=== PATIENT | female | born 1985 | race Caucasian/White ===

== ENCOUNTER 2017-12-01 18:24 | Emergency (ER) | END 2017-12-01 21:44 | disposition home or self-care (01) ==

== ENCOUNTER 2019-02-04 08:48 | Emergency (ER) | payer MEDICAID, OTHER ==
[~2019-02-04] VITALS: Ht 160 cm; Wt 82.8 kg
[~2019-02-04 08:48] MED LIST: BACTDS PO; CEPH-443 PO; HYDR-4011 PO; IBUP-1542 PO; PREN-46 PO
[2019-02-04 08:51] VITALS: BP 125/57; PULSE 102; RESP 18; Ht 160 cm; Wt 82.8 kg
[2019-02-04] MEDS ORDERED: HYDR-843 PO (09:49)
[2019-02-04] MEDS ORDERED: EPIN0.3P4 INJ (09:49)
[2019-02-04] MEDS ORDERED: OXYC-279 PO (09:49)
[2019-02-04] MEDS ORDERED: ONDA4TAB8 PO (09:49)
[2019-02-04] MEDS ORDERED: DEXAMETHASONE 10 MG/ML 1 ML INJ IM STA (09:52)
[2019-02-04] MEDS ORDERED: DEXAMETHASONE 4 MG/ML 1 ML INJ IM ONE (10:00)
[2019-02-04] MEDS ORDERED: DIPHENHYDRAMINE 25 MG CAP PO ONE (10:00)
--- NOTE | 2019-02-04 13:54 | ERD ---
ER Documentation Chief Complaint Chief Complaint rash and itching after eating sushi last night HPI 33-year-old woman complaining of itchy red rash over most of her body and upper lip swelling beginning last night after eating sushi, patient is status post gastric surgery, abdominoplasty, and breast reduction surgery about a week ago. She states she ran out of her opioid analgesics as well. She denies chest pain or shortness of breath, no vomiting or diarrhea, no difficulty swallowing or speaking. ROS All systems reviewed and are negative except as per history of present illness. Medications Home Meds Active Scripts Hydroxyzine Hcl* (Hydroxyzine Hcl*) 25 Mg Tablet, 25 MG PO TID PRN for ITCHING, #30 TAB Prov:EVERETTE ZIMMERMAN MD 02/04/19 Epinephrine (Epipen 2-Julian) 0.3 Mg/0.3 Ml Pen.injctr, 1 EA INJ ONCE PRN for ALLERGIC REACTION, #1 EA Prov:EVERETTE ZIMMERMAN MD 02/04/19 Ondansetron Hcl* (Zofran*) 4 Mg Tablet, 4 MG PO Q6H for NAUSEA AND/OR VOMITING, #30 TAB Prov:EVERETTE ZIMMERMAN MD 02/04/19 Oxycodone HCl/Acetaminophen (Percocet 5-325 mg Tablet) 1 Each Tablet, 1 EACH PO TID PRN for PAIN LEVEL 6-10, #15 TAB Prov:EVERETTE ZIMMERMAN MD 02/04/19 Hydrocodone/Acetaminophen ([place] 5-325 Tablet) 1 Each Tablet, 1 TAB PO Q6H PRN for PAIN, #10 TAB Prov:LOCO DALLAS MD 12/01/17 Ibuprofen* (Ibuprofen*) 600 Mg Tablet, 600 MG PO Q6H PRN for PAIN, #30 TAB Prov:ANITA MALDONADO PA-C 09/03/16 Hydrocodone/Acetaminophen ([place] 5-325 Tablet) 1 Each Tablet, 2 TAB PO Q6H PRN for PAIN, #30 TAB Prov:ANITA MALDONADO PA-C 09/03/16 Sulfamethoxazole-Trimethoprim* (Bactrim* DS) 800-160 Mg Tab, 1 TAB PO BID for 7 Days, TAB Prov:ANITA MALDONADO PA-C 09/03/16 Cephalexin* (Keflex*) 500 Mg Capsule, 500 MG PO QID for 10 Days, CAP Prov:ANITA MALDONADO PA-C 09/03/16 Reported Medications Vit #108/Iron/Fa ( ONE TABLET) 1 Each Tablet, 1 EACH PO DAILY, #100 10/14/13 Allergies Allergies: Coded Allergies: No Known Allergy (Unverified , 12/01/17) PMhx/Soc History of Surgery: Yes (GASTRIC SLEEVE,stomach reduction,breast reduction) Anesthesia Reaction: No Hx Neurological Disorder: No Hx Respiratory Disorders: No Hx Cardiac Disorders: No Hx Psychiatric Problems: No Hx Miscellaneous Medical Probl: No Hx Alcohol Use: No Hx Substance Use: No Hx Tobacco Use: No Smoking Status: Never smoker FmHx Family History: No diabetes Physical Exam Vitals Vital Signs Date Temp Pulse Resp B/P (MAP) Pulse Ox O2 O2 Flow FiO2 Time Delivery Rate 02/04/19 98.1 102 18 125/57 100 08:51 (79) Physical Exam GENERAL: Well-developed, well-nourished, well-hydrated, in no apparent distress, looks nontoxic in appearance HEENT: Moist mucous membranes, pink conjunctiva, no cervical spine tenderness or step-off deformities, no goiter, no jaundice or icterus, extraocular movements intact without pain. CARDIAC: Regular rate and rhythm, no murmurs rubs or gallops LUNGS: Clear bilaterally no wheezing crackles or stridor ABDOMEN: Soft nontender, no guarding, no rigidity, no rebound, no psoas sign no obturator sign. Normoactive bowel sounds SKIN: Diffuse urticarial lesions throughout the upper and lower extremities and torso and mild upper lip edema. Surgical sites over the breasts and abdomen are clean and dry bogdan are in place there is no wound dehiscence, no purulent discharge. Patient has no submandibular induration EXTREMITIES: No clubbing cyanosis or edema, calves are bilaterally symmetrical, no Homans sign, no popliteal cord sign. Distal pulses equal and bilateral PSYCH: Normal affect without agitation or irritability Results 24 hrs Current Medications Medications Dose Sig/Yeimi Start Time Status Last (Trade) Ordered Route PRN Stop Time Admin Dose Reason Admin 10 mg ONCE ONCE 02/04/19 DC Dexamethasone IM 10:00 (Decadron) 02/04/19 10:00 25 mg ONCE ONCE 02/04/19 DC 02/04/19 Diphenhydrami PO 10:00 10:00 ne HCl 02/04/19 10:01 (Benadryl) 10 mg ONCE STAT 02/04/19 DC 02/04/19 Dexamethasone IM 09:52 10:00 (Decadron) 02/04/19 09:55 Procedures/MDM Administer dexamethasone 10 mg IM x1 and Benadryl 25 mg p.o. x1 I agreed to refill the patient's opioid analgesics and also recommended EpiPen which I prescribed. Patient feels much better at this time, and vital signs are normal, symptoms have improved. I did give strict instructions to return to the ED if symptoms continue or worsen, patient will otherwise follow-up with primary care physician. Patient understood instructions and agreed to plan. Disclaimer: Inadvertent spelling and grammatical errors are likely due to EHR/dictation software use and do not reflect on the overall quality of patient care. Also, please note that the electronic time recorded on this note does not necessarily reflect the actual time of the patient encounter. Departure Diagnosis: Primary Impression: Allergic reaction Encounter type: initial encounter Qualified Codes: T78.40XA - Allergy, unspecified, initial encounter Additional Impressions: Food allergy Postoperative pain Condition: Good Patient Instructions: Allergic Reaction, Other (General), Post Op Wound Check, Pain EVERETTE ZIMMERMAN MD February 04, 2019 13:54
== END 2019-02-04 09:49 | disposition home or self-care (01) ==
LOC: FTE 08:48
DX: L50.0 Allergic urticaria (principal); G89.18 Other acute postprocedural pain; T78.1XXA Other adverse food reactions, not elsewhere classified, initial encounter
CPT/HCPCS: 96372; J1100; Z7502; Z7610

== ENCOUNTER 2019-04-04 10:14 | Inpatient (IN) | payer OTHER ==
[~2019-04-04] VITALS: Ht 160 cm; Wt 79.3 kg
[~2019-04-04 10:14] MED LIST changes: +EPIN0.3P4 INJ; +FAMO-96 PO; +HYDR-843 PO; +ONDA4TAB8 PO; +OXYC-279 PO
[2019-04-04] MEDS ORDERED: ONDANSETRON 4 MG INJ IV STA (10:34)
[2019-04-04] MEDS ORDERED: SOD CHLORIDE 0.9% 1,000 ML IV STA (10:34)
[2019-04-04] MEDS ORDERED: morphine 4 MG/ML VIAL IV STA (10:34)
[2019-04-04] MEDS ORDERED: ACETAMINOPHEN 325 MG TAB PO PRN (11:00)
[2019-04-04] MEDS ORDERED: ONDANSETRON 4 MG INJ IV PRN ×3 (11:00→21:30)
[2019-04-04 12:07] VITALS: BP 101/67; PULSE 68; RESP 18
--- NOTE | 2019-04-04 12:20 | ERD ---
ER Documentation Chief Complaint Chief Complaint RIGHT QUADRANT PAIN - POSSIBLE GALLSTONES HPI Patient is a 33-year-old female with no medical problems who presents with abdominal pain. She has right upper quadrant abdominal pain. She has been trying famotidine and [place] but is failed outpatient treatment. She was seen in the emergency department 2 days ago for the same and had a work-up including laboratory studies, ultrasound, and CT scan. She was discharged and recommended outpatient follow-up. She saw the [facility] today who is her primary doctor who sent her to the emergency department for evaluation and admission. She had subjective fever starting yesterday and said that she has been vomiting yellow bile. Upon review of old medical records this is the patient's second visit to the ER since 2015. ROS All systems reviewed and are negative except as per history of present illness. Medications Home Meds Active Scripts Famotidine* (Pepcid*) 20 Mg Tablet, 20 MG PO BID for 4 Days, #30 TAB Prov:JACQUE NG PA-C 04/02/19 Hydrocodone/Acetaminophen ([place] 5-325 Tablet) 1 Each Tablet, 1 TAB PO Q6H PRN for PAIN, #7 TAB Prov:JACQUE NG PA-C 04/02/19 Hydroxyzine Hcl* (Hydroxyzine Hcl*) 25 Mg Tablet, 25 MG PO TID PRN for ITCHING, #30 TAB Prov:EVERETTE ZIMMERMAN MD 02/04/19 Epinephrine (Epipen 2-Julian) 0.3 Mg/0.3 Ml Pen.injctr, 1 EA INJ ONCE PRN for ALLERGIC REACTION, #1 EA Prov:EVERETTE ZIMMERMAN MD 02/04/19 Ondansetron Hcl* (Zofran*) 4 Mg Tablet, 4 MG PO Q6H for NAUSEA AND/OR VOMITING, #30 TAB Prov:EVERETTE ZIMMERMAN MD 02/04/19 Oxycodone HCl/Acetaminophen (Percocet 5-325 mg Tablet) 1 Each Tablet, 1 EACH PO TID PRN for PAIN LEVEL 6-10, #15 TAB Prov:EVERETTE ZIMMERMAN MD 02/04/19 Hydrocodone/Acetaminophen ([place] 5-325 Tablet) 1 Each Tablet, 1 TAB PO Q6H PRN for PAIN, #10 TAB Prov:LOCO DALLAS MD 12/01/17 Ibuprofen* (Ibuprofen*) 600 Mg Tablet, 600 MG PO Q6H PRN for PAIN, #30 TAB Prov:ANITA MALDONADO PA-C 09/03/16 Hydrocodone/Acetaminophen ([place] 5-325 Tablet) 1 Each Tablet, 2 TAB PO Q6H PRN for PAIN, #30 TAB Prov:ANITA MALDONADO PA-C 09/03/16 Sulfamethoxazole-Trimethoprim* (Bactrim* DS) 800-160 Mg Tab, 1 TAB PO BID for 7 Days, TAB Prov:ANITA MALDONADO PA-C 09/03/16 Cephalexin* (Keflex*) 500 Mg Capsule, 500 MG PO QID for 10 Days, CAP Prov:ANITA MALDONADO PA-C 09/03/16 Reported Medications Vit #108/Iron/Fa ( ONE TABLET) 1 Each Tablet, 1 EACH PO DAILY, #100 10/14/13 Allergies Allergies: Coded Allergies: No Known Allergy (Unverified , 12/01/17) PMhx/Soc History of Surgery: Yes (GASTRIC SLEEVE,stomach reduction,breast reduction) Anesthesia Reaction: No Hx Neurological Disorder: No Hx Respiratory Disorders: No Hx Cardiac Disorders: No Hx Psychiatric Problems: No Hx Miscellaneous Medical Probl: No Hx Alcohol Use: No Hx Substance Use: No Hx Tobacco Use: No Smoking Status: Never smoker FmHx Family History: No diabetes Physical Exam Vitals Vital Signs Date Temp Pulse Resp B/P (MAP) Pulse Ox O2 O2 Flow FiO2 Time Delivery Rate 04/04/19 98.7 107 26 120/52 99 10:15 (74) Physical Exam Const: No acute distress Head: Atraumatic Eyes: Normal Conjunctiva ENT: Normal External Ears, Nose and Mouth. Neck: Full range of motion. No meningismus. Resp: Clear to auscultation bilaterally Cardio: Regular rate and rhythm, no murmurs Abd: Right upper quadrant tenderness to palpation with guarding Skin: No petechiae or rashes Back: No midline or flank tenderness Ext: No cyanosis, or edema Neur: Awake and alert Psych: Normal Mood and Affect Result Diagram: 04/04/19 1052 04/04/19 1052 Results 24 hrs Laboratory Tests Test 04/04/19 10:34 POC Beta HCG, Qualitative NEGATIVE Current Medications Medications Dose Sig/Yeimi Start Time Status Last (Trade) Ordered Route PRN Stop Time Admin Dose Reason Admin Sodium 1,000 ml @ Q1H STAT 04/04/19 DC 04/04/19 Chloride 1,000 mls/hr IV 10:34 10:59 04/04/19 11:33 Morphine 4 mg ONCE STAT 04/04/19 DC 04/04/19 Sulfate IV 10:34 10:59 (morphine) 04/04/19 10:35 Ondansetron 4 mg ONCE STAT 04/04/19 DC 04/04/19 HCl (Zofran IV 10:34 10:58 Inj) 04/04/19 10:35 Procedures/MDM Ultrasound and CT scan performed 2 days ago which I reviewed. Chest x-ray read by radiology. EKG pending. Patient is a 33-year-old female who presents with acute cholecystitis. The patient has significant right upper quadrant abdominal pain with palpation. She is reporting subjective fever and vomiting bile. She has failed outpatient treatment at this time and I believe she has acute cholecystitis. I spoke with Dr. Bolanos via [facility] for consultation. I spoke with Dr. Garduno from the panel team for admission to a medical surgical bed. The patient would likely benefit from cholecystectomy. Today the white count is elevated at 13.2. LFTs and lipase are normal. She will be admitted to a medical surgical inpatient bed. Departure Diagnosis: Primary Impression: Cholecystitis Condition: LILA Franklin MD Apr 04, 2019 12:20
[2019-04-04 12:31] VITALS: Ht 160 cm; Wt 79.3 kg
[2019-04-04] MEDS: morphine 2 MG INJ IV PRN ×2 (13:46→18:16)
[2019-04-04 14:00] VITALS: BP 102/57; PULSE 86; RESP 20
[2019-04-04] MEDS ORDERED: ALBUTEROL/IPRATROPIUM (NEB) 3 ML AMP HHN PRN (14:30)
[2019-04-04] MEDS ORDERED: LORAZEPAM 2 MG INJ IV PRN (14:30)
[2019-04-04] MEDS ORDERED: NACL 0.9% 3 ML SYG IV SCH (14:30)
[2019-04-04] MEDS ORDERED: NITROGLYCERIN (SL) 0.4 MG TAB SL PRN (14:30)
[2019-04-04] MEDS ORDERED: DOCUSATE SODIUM 100 MG CAP PO PRN (14:30)
--- NOTE | 2019-04-04 14:51 | HP ---
DATE OF ADMISSION: 04/04/2019 CHIEF COMPLAINT: Abdominal pain. HISTORY OF PRESENT ILLNESS: A 33-year-old female with past medical history of tummy tuck and breast reduction surgeries who comes in with abdominal pain. She has had some subjective fevers at home and some bilious vomiting symptoms in the last 48 hours, the patient's pain initially began about 2 to 3 days ago when she came to the ER 2 days ago and had imaging studies performed at that time including CT abdomen and pelvis, and it showed findings of possible cholecystitis with mild biliary ductal enl argement. There was also a gallbladder ultrasound showed moderately distended gallbladder with multi ple large calcified stones. At that time, patient was told to watch her symptoms and she was dischar ged with pain medicines and an H2 antonio and told to come back to the ER in 48 hours since that time , her pain symptoms have not improved and again she has had no vomiting symptoms and some subjective fevers. She went to the health clinic earlier today and saw her primary doctor who told her to come to the ER for reevaluation. When she came in today, she had a chest x-ray performed that shows no ev idence of any acute cardiopulmonary disease, but given the imaging studies that were performed 48 dru rs ago a call was made out to the surgeon to come see the patient, which is still pending at this antonio e. The patient also has elevated white blood cell count of 13.3. Denies any chest pain or shortness of breath, no upper or lower GI bleeding, no diarrhea or constipation, no chills. PAST MEDICAL HISTORY: As stated above. ALLERGIES: NO KNOWN DRUG ALLERGIES. MEDICATIONS AT HOME: 1. Famotidine 20 mg b.i.d. 2. [place] 5/325 q.6h. p.r.n. 3. Hydroxyzine 25 mg t.i.d. p.r.n. 4. Zofran 4 mg p.o. q.6h. p.r.n. PAST SURGICAL HISTORY: Again, she had a tummy tuck surgery in the past and breast reduction surgery in the past. SOCIAL HISTORY: Former alcohol use. Denies any IV drug abuse or smoking history. FAMILY HISTORY: Noncontributory. PHYSICAL EXAMINATION: VITAL SIGNS: T-max 98.7, pulse 107, respirations 26, blood pressure 120/52, satting at 99% on room a ir. GENERAL: The patient is lying in bed in mild to moderate distress, complaining of some pain symptoms , but alert. HEENT: Pupils are equal, round, react to light. Extraocular muscles intact. NECK: Supple, no thyromegaly. LUNGS: Clear to auscultation bilaterally. CARDIOVASCULAR: S1, S2 heard. No rubs or gallops. ABDOMEN: Tenderness to palpation right upper quadrant area with some guarding otherwise normal bowel sounds. No rebound. MUSCULOSKELETAL: No lower extremity edema bilaterally. NEUROLOGIC: No focal deficits. LABORATORIES: WBC 13.3. The rest of the CBC is normal. The comprehensive metabolic panel is normal except the ALT is a little high at 89. The bilirubins are normal. We mentioned the prior CT abdome n and pelvis findings and gallbladder ultrasound findings. ASSESSMENT AND PLAN: A 33-year-old female coming in with signs of right upper quadrant abdominal denita n and vomiting symptoms and subjective fevers with signs of acute cholecystitis. 1. Abdominal pain, likely secondary to acute cholecystitis. We will admit the patient, keep her n.p .o. Give her IV fluids, check TSH, A1c, lipid panel. We will follow up with the recommendation of [facility] surgery consult team. The patient may benefit from laparoscopic cholecystectomy attempt, but again we will discuss with surgery team first to see if this is the appropriate treatment versus medical m anagement. Continue IV fluids. 2. Gastrointestinal prophylaxis, H2 antonio. 3. Deep venous thrombosis prophylaxis, heparin subcutaneously. Dictated By: ETIENNE PONCE Conf#: [id number] DID#: [id number]
[2019-04-04] MEDS: FAMOTIDINE 20 MG TAB PO SCH ×2 (15:00→21:00)
[2019-04-04] MEDS: SOD CHLORIDE 0.9% 1,000 ML IV SCH (15:28)
[2019-04-04] MEDS: ACETAMINOPHEN 325 MG TAB PO PRN ×2 (17:15→17:23)
--- NOTE | 2019-04-04 20:32 | CONS ---
Assessment/Plan Assessment/Plan Assessment/Plan (Daily) cholelithiasis , abdominal pain , gallstones consistent with acute cholecystitis discussed with patient options of trying medical management for pain , delayed surgery vs urgent . As her symptoms and signs are now consistent with acute cholecystitis Risks benefits and alternatives discussed . patient wishes to proceed and OR has been called Consultation Date/Type/Reason Admit Date/Time Apr 04, 2019 at 10:44 Date of Consultation: Apr 04, 2019 Type of Consult General Surgery Reason for Consultation abdominal pain , cholelithiasis Date/Time of Note DATE: 04/04/19 TIME: 20:14 Hx of Present Illness Patient presente to ER with second atttack of upper abdominal pain . Seen in ER two days ago , CT and U/S showed gallstones . Now WBC 12k , LFTs normal , Patient had sleeve gastrectomy a few years ago . No other medical issues . Pain quite severe earlier today and last night after she stopped taking [place] Past Medical History Home Meds Active Scripts Famotidine* (Pepcid*) 20 Mg Tablet, 20 MG PO BID for 4 Days, #30 TAB Prov:JACQUE NG PA-C 04/02/19 Hydrocodone/Acetaminophen ([place] 5-325 Tablet) 1 Each Tablet, 1 TAB PO Q6H PRN for PAIN, #7 TAB Prov:JACQUE NG PA-C 04/02/19 Hydroxyzine Hcl* (Hydroxyzine Hcl*) 25 Mg Tablet, 25 MG PO TID PRN for ITCHING, #30 TAB Prov:EVERETTE ZIMMERMAN MD 02/04/19 Epinephrine (Epipen 2-Julian) 0.3 Mg/0.3 Ml Pen.injctr, 1 EA INJ ONCE PRN for ALLERGIC REACTION, #1 EA Prov:EVERETTE ZIMMERMAN MD 02/04/19 Ondansetron Hcl* (Zofran*) 4 Mg Tablet, 4 MG PO Q6H for NAUSEA AND/OR VOMITING, #30 TAB Prov:EVERETTE ZIMMERMAN MD 02/04/19 Oxycodone HCl/Acetaminophen (Percocet 5-325 mg Tablet) 1 Each Tablet, 1 EACH PO TID PRN for PAIN LEVEL 6-10, #15 TAB Prov:EVERETTE ZIMMERMAN MD 02/04/19 Hydrocodone/Acetaminophen ([place] 5-325 Tablet) 1 Each Tablet, 1 TAB PO Q6H PRN for PAIN, #10 TAB Prov:LOCO DALLAS MD 12/01/17 Ibuprofen* (Ibuprofen*) 600 Mg Tablet, 600 MG PO Q6H PRN for PAIN, #30 TAB Prov:ANITA MALDONADO PA-C 09/03/16 Hydrocodone/Acetaminophen ([place] 5-325 Tablet) 1 Each Tablet, 2 TAB PO Q6H PRN for PAIN, #30 TAB Prov:ANITA MALDONADO PA-C 09/03/16 Sulfamethoxazole-Trimethoprim* (Bactrim* DS) 800-160 Mg Tab, 1 TAB PO BID for 7 Days, TAB Prov:ANITA MALDONADO PA-C 09/03/16 Cephalexin* (Keflex*) 500 Mg Capsule, 500 MG PO QID for 10 Days, CAP Prov:ANITA MALDONADO PA-C 09/03/16 Reported Medications Vit #108/Iron/Fa ( ONE TABLET) 1 Each Tablet, 1 EACH PO DAILY, #100 10/14/13 Medications Current Medications Ondansetron HCl (Zofran Inj) 4 mg BRIDGE ORDER PRN IV NAUSEA/VOMITING; Start 04/04/19 at 11:00; Stop 04/05/19 at 10:59 Morphine Sulfate (morphine) 2 mg Q4H PRN IV SEVERE PAIN LEVEL 7-10 Last administered on 04/04/19at 18:16; Admin Dose 2 MG; Start 04/04/19 at 14:00 IV Flush (NS 3 ml) 3 ml PER PROTOCOL IV ; Start 04/04/19 at 14:30 Ondansetron HCl (Zofran Inj) 4 mg Q6H PRN IV NAUSEA/VOMITING; Start 04/04/19 at 14:30 Acetaminophen (Tylenol Tab) 650 mg Q6H PRN PO .PAIN 1-3 OR TEMP Last administered on 04/04/19at 17:23; Admin Dose 650 MG; Start 04/04/19 at 14:30 Acetaminophen/ Hydrocodone Bitart ([place] (5/325)) 1 tab Q6H PRN PO .MOD PAIN 4- 6; Start 04/04/19 at 14:30 Morphine Sulfate (morphine) 2 mg Q4H PRN IV .SEVERE PAIN 7-10; Start 04/04/19 at 14:30 Docusate Sodium (Colace) 100 mg Q12H PRN PO .CONSTIPATION; Start 04/04/19 at 14:30 Magnesium Hydroxide (Milk Of Mag) 30 ml DAILY PRN PO .CONSTIPATION; Start 04/04/19 at 14:30 Lorazepam (Ativan) 0.5 mg Q6H PRN IV ANXIETY Last administered on 04/04/19at 15:39; Admin Dose 0.5 MG; Start 04/04/19 at 14:30 Albuterol/ Ipratropium (Duoneb) 3 ml Q4H RESP THERAPY PRN HHN SHORTNESS OF BREATH; Start 04/04/19 at 14:30 Nitroglycerin (Nitroglycerin (Sl Tab) 0.4 Mg) 1 tab Q5M PRN SL ANGINA; Start 04/04/19 at 14:30 Sodium Chloride 1,000 ml @ 100 mls/hr Q10H IV Last administered on 04/04/19at 15:28; Admin Dose 100 MLS/HR; Start 04/04/19 at 14:30 Famotidine (Pepcid) 20 mg BID PO ; Start 04/04/19 at 15:00 Heparin Sodium (Porcine) (Heparin (5000 Units/1ml)) 5,000 unit BID SC ; Start 04/04/19 at 21:00 Allergies: Coded Allergies: No Known Allergy (Unverified , 12/01/17) Social History Smoking Status: Never smoker Exam/Review of Systems Exam Vitals Vital Signs Date Temp Pulse Resp B/P (MAP) Pulse Ox O2 O2 Flow FiO2 Time Delivery Rate 04/04/19 98.8 86 20 102/57 96 14:00 (72) 04/04/19 Room Air 12:07 Exam Awake and alert x 3 . Lungs clear Cor Reg Abd tender right upper quadrant Results Result Diagram: 04/04/19 1052 04/04/19 1052 Results 24hrs Laboratory Tests Test 04/04/19 10:34 04/04/19 10:45 04/04/19 10:52 POC Beta HCG, Qualitative NEGATIVE Free Thyroxine 1.00 White Blood Count 13.3 #H Red Blood Count 4.56 Hemoglobin 13.4 Hematocrit 40.6 Mean Corpuscular Volume 89.0 Mean Corpuscular Hemoglobin 29.4 Mean Corpuscular Hemoglobin Concent 33.0 Red Cell Distribution Width 12.5 Platelet Count 201 # Mean Platelet Volume 9.0 Immature Granulocytes % 0.600 H Neutrophils % 79.8 H Lymphocytes % 9.6 L Monocytes % 8.5 Eosinophils % 1.1 Basophils % 0.4 Nucleated Red Blood Cells % 0.0 Immature Granulocytes # 0.080 H Neutrophils # 10.6 H Lymphocytes # 1.3 Monocytes # 1.1 H Eosinophils # 0.2 Basophils # 0.1 Nucleated Red Blood Cells # 0.0 Prothrombin Time 15.3 H Prothrombin Time Ratio 1.2 INR International Normalized Ratio 1.20 Activated Partial Thromboplast Time 35.8 H Urine Color YELLOW Urine Clarity CLEAR Urine pH 6.0 Urine Specific Ashley 1.017 Urine Ketones NEGATIVE Urine Nitrite NEGATIVE Urine Bilirubin NEGATIVE Urine Urobilinogen NEGATIVE Urine Leukocyte Esterase NEGATIVE Urine Hemoglobin NEGATIVE Urine Glucose NEGATIVE Urine Total Protein NEGATIVE Sodium Level 140 Potassium Level 4.2 Chloride Level 105 Carbon Dioxide Level 27 Anion Gap 8 Blood Urea Nitrogen 11 Creatinine 0.60 Est Glomerular Filtrat Rate mL/min > 60 Glucose Level 91 Calcium Level 8.8 Total Bilirubin 0.4 Direct Bilirubin 0.00 Indirect Bilirubin 0.4 Aspartate Amino Transf (AST/SGOT) 45 Alanine Aminotransferase (ALT/SGPT) 89 H Alkaline Phosphatase 88 Troponin I < 0.012 Total Protein 6.7 Albumin 3.4 Globulin 3.30 H Albumin/Globulin Ratio 1.03 Lipase 36 Medications Medication Current Medications Ondansetron HCl (Zofran Inj) 4 mg BRIDGE ORDER PRN IV NAUSEA/VOMITING; Start 04/04/19 at 11:00; Stop 04/05/19 at 10:59 Morphine Sulfate (morphine) 2 mg Q4H PRN IV SEVERE PAIN LEVEL 7-10 Last administered on 04/04/19at 18:16; Admin Dose 2 MG; Start 04/04/19 at 14:00 IV Flush (NS 3 ml) 3 ml PER PROTOCOL IV ; Start 04/04/19 at 14:30 Ondansetron HCl (Zofran Inj) 4 mg Q6H PRN IV NAUSEA/VOMITING; Start 04/04/19 at 14:30 Acetaminophen (Tylenol Tab) 650 mg Q6H PRN PO .PAIN 1-3 OR TEMP Last administered on 04/04/19at 17:23; Admin Dose 650 MG; Start 04/04/19 at 14:30 Acetaminophen/ Hydrocodone Bitart ([place] (5/325)) 1 tab Q6H PRN PO .MOD PAIN 4- 6; Start 04/04/19 at 14:30 Morphine Sulfate (morphine) 2 mg Q4H PRN IV .SEVERE PAIN 7-10; Start 04/04/19 at 14:30 Docusate Sodium (Colace) 100 mg Q12H PRN PO .CONSTIPATION; Start 04/04/19 at 14:30 Magnesium Hydroxide (Milk Of Mag) 30 ml DAILY PRN PO .CONSTIPATION; Start 04/04/19 at 14:30 Lorazepam (Ativan) 0.5 mg Q6H PRN IV ANXIETY Last administered on 04/04/19at 15:39; Admin Dose 0.5 MG; Start 04/04/19 at 14:30 Albuterol/ Ipratropium (Duoneb) 3 ml Q4H RESP THERAPY PRN HHN SHORTNESS OF BREATH; Start 04/04/19 at 14:30 Nitroglycerin (Nitroglycerin (Sl Tab) 0.4 Mg) 1 tab Q5M PRN SL ANGINA; Start 04/04/19 at 14:30 Sodium Chloride 1,000 ml @ 100 mls/hr Q10H IV Last administered on 04/04/19at 15:28; Admin Dose 100 MLS/HR; Start 04/04/19 at 14:30 Famotidine (Pepcid) 20 mg BID PO ; Start 04/04/19 at 15:00 Heparin Sodium (Porcine) (Heparin (5000 Units/1ml)) 5,000 unit BID SC ; Start 04/04/19 at 21:00 KIRSTEN PEÑA MD Apr 04, 2019 20:27
[2019-04-04] MEDS ORDERED: SEVOFLURANE 15 MIN ONE (21:00)
[2019-04-04] MEDS ORDERED: HEPARIN 5,000 UNIT/1 ML VIAL SC SCH (21:00)
[2019-04-04] MEDS ORDERED: EPHEDrine 25 MG/5 ML SYG ONE (21:00)
[2019-04-04 21:07] VITALS: BP 103/56; PULSE 88; RESP 20
--- NOTE | 2019-04-04 21:17 | PREAC ---
Date/Time of Note Date/Time of Note DATE: 04/04/19 TIME: 21:16 Anesthesia Eval and Record Evaluation Time Pre-Procedure Interview DATE: 04/04/19 TIME: 21:16 Age 33 Sex female NPO: 8 hrs Preoperative diagnosis acute cholecystitis Planned procedure laparoscopic cholecystectomy Past Medical History Past Medical History: Includes GI: Obesity Surgery & Anesthesia Issues No known issue Meds Anticoagulation: No Beta Karma within 24 hr: No Reason Beta Karma not given: Pt. not on B-Karma Active Scripts Famotidine* (Pepcid*) 20 Mg Tablet, 20 MG PO BID for 4 Days, #30 TAB Prov:JACQUE NG PA-C 04/02/19 Hydrocodone/Acetaminophen ([place] 5-325 Tablet) 1 Each Tablet, 1 TAB PO Q6H PRN for PAIN, #7 TAB Prov:JACQUE NG PA-C 04/02/19 Hydroxyzine Hcl* (Hydroxyzine Hcl*) 25 Mg Tablet, 25 MG PO TID PRN for ITCHING, #30 TAB Prov:EVERETTE ZIMMERMAN MD 02/04/19 Epinephrine (Epipen 2-Julian) 0.3 Mg/0.3 Ml Pen.injctr, 1 EA INJ ONCE PRN for ALLERGIC REACTION, #1 EA Prov:EVERETTE ZIMMERMAN MD 02/04/19 Ondansetron Hcl* (Zofran*) 4 Mg Tablet, 4 MG PO Q6H for NAUSEA AND/OR VOMITING, #30 TAB Prov:EVERETTE ZIMMERMAN MD 02/04/19 Oxycodone HCl/Acetaminophen (Percocet 5-325 mg Tablet) 1 Each Tablet, 1 EACH PO TID PRN for PAIN LEVEL 6-10, #15 TAB Prov:EVERETTE ZIMMERMAN MD 02/04/19 Hydrocodone/Acetaminophen ([place] 5-325 Tablet) 1 Each Tablet, 1 TAB PO Q6H PRN for PAIN, #10 TAB Prov:LOCO DALLAS MD 12/01/17 Ibuprofen* (Ibuprofen*) 600 Mg Tablet, 600 MG PO Q6H PRN for PAIN, #30 TAB Prov:ANITA MALDONADO PA-C 09/03/16 Hydrocodone/Acetaminophen ([place] 5-325 Tablet) 1 Each Tablet, 2 TAB PO Q6H PRN for PAIN, #30 TAB Prov:MONIQUERodolfoANITA PA-C 09/03/16 Sulfamethoxazole-Trimethoprim* (Bactrim* DS) 800-160 Mg Tab, 1 TAB PO BID for 7 Days, TAB Prov:ANITA MALDONADO PA-C 09/03/16 Cephalexin* (Keflex*) 500 Mg Capsule, 500 MG PO QID for 10 Days, CAP Prov:ANITA MALDONADO PA-C 09/03/16 Reported Medications Vit #108/Iron/Fa ( ONE TABLET) 1 Each Tablet, 1 EACH PO DAILY, #100 10/14/13 Current Medications Ondansetron HCl (Zofran Inj) 4 mg BRIDGE ORDER PRN IV NAUSEA/VOMITING; Start 04/04/19 at 11:00; Stop 04/05/19 at 10:59 Morphine Sulfate (morphine) 2 mg Q4H PRN IV SEVERE PAIN LEVEL 7-10 Last administered on 04/04/19at 18:16; Admin Dose 2 MG; Start 04/04/19 at 14:00 IV Flush (NS 3 ml) 3 ml PER PROTOCOL IV ; Start 04/04/19 at 14:30 Ondansetron HCl (Zofran Inj) 4 mg Q6H PRN IV NAUSEA/VOMITING; Start 04/04/19 at 14:30 Acetaminophen (Tylenol Tab) 650 mg Q6H PRN PO .PAIN 1-3 OR TEMP Last administered on 04/04/19at 17:23; Admin Dose 650 MG; Start 04/04/19 at 14:30 Acetaminophen/ Hydrocodone Bitart ([place] (5/325)) 1 tab Q6H PRN PO .MOD PAIN 4- 6; Start 04/04/19 at 14:30 Morphine Sulfate (morphine) 2 mg Q4H PRN IV .SEVERE PAIN 7-10; Start 04/04/19 at 14:30 Docusate Sodium (Colace) 100 mg Q12H PRN PO .CONSTIPATION; Start 04/04/19 at 14:30 Magnesium Hydroxide (Milk Of Mag) 30 ml DAILY PRN PO .CONSTIPATION; Start 04/04/19 at 14:30 Lorazepam (Ativan) 0.5 mg Q6H PRN IV ANXIETY Last administered on 04/04/19at 15 :39; Admin Dose 0.5 MG; Start 04/04/19 at 14:30 Albuterol/ Ipratropium (Duoneb) 3 ml Q4H RESP THERAPY PRN HHN SHORTNESS OF BREATH; Start 04/04/19 at 14:30 Nitroglycerin (Nitroglycerin (Sl Tab) 0.4 Mg) 1 tab Q5M PRN SL ANGINA; Start 04/04/19 at 14:30 Sodium Chloride 1,000 ml @ 100 mls/hr Q10H IV Last administered on 04/04/19at 15:28; Admin Dose 100 MLS/HR; Start 04/04/19 at 14:30 Famotidine (Pepcid) 20 mg BID PO ; Start 04/04/19 at 15:00 Heparin Sodium (Porcine) (Heparin (5000 Units/1ml)) 5,000 unit BID SC ; Start 04/04/19 at 21:00 Meds reviewed: Yes Allergies Coded Allergies: No Known Allergy (Unverified , 12/01/17) Allergies Reviewed: Yes Labs/Studies Labs Reviewed: Reviewed by anesthesiologist Result Diagram: 04/04/19 1052 04/04/19 1052 Laboratory Tests 04/04/19 10:52 test: Negative Pre-procedure Exam Last vitals Vital Signs Date Temp Pulse Resp B/P (MAP) Pulse Ox O2 O2 Flow FiO2 Time Delivery Rate 04/04/19 98.2 88 20 103/56 100 21:07 (72) 04/04/19 Room Air 12:07 Airway: Adequate mouth opening, Adequate thyromental dist Mallampati: Mallampati II Teeth: Normal Lung: Normal Heart: Normal ASA Physical Status ASA physical status: 2 Emergency: None Planned Anesthetic General/MAC: ETT Nerve block: TAP (bilateral) Planned Pain Management Single shot nerve block, Parenteral pain med Pre-operative Attestations Prior to commencing anesthesia and surgery, the patient was re-evaluated, there was verification of: *The patient's identity *The results of appropriate recent lab work and preoperative vital signs *The above evaluation not changing prior to induction *Anesthetic plan, risk benefits, alternative and complications discussed with patient/family; questions answered; patient/family understands, accepts and wishes to proceed. ASHLEY JOHNSON MD Apr 04, 2019 21:17
[2019-04-04] MEDS ORDERED: DIPHENHYDRAMINE 50 MG INJ IV PRN (21:30)
[2019-04-04] MEDS ORDERED: PROCHLORPERAZINE 10 MG INJ IV PRN (21:30)
[2019-04-04] MEDS ORDERED: FENTAnyl 50 MCG/ML VIAL IV PRN ×3 (21:30)
[2019-04-04] MEDS ORDERED: MEPERIDINE 25 MG INJ IV PRN (21:30)
[2019-04-04] MEDS ORDERED: HYDROmorphONE 1 MG/5 ML IV SYRINGE IV PRN ×3 (21:30)
[2019-04-04] MEDS ORDERED: ROCURONIUM 50 MG INJ ONE (21:31)
[2019-04-04] MEDS ORDERED: SUCCINYLCHOLINE CHLORIDE 100 MG/5 ML SYG IV ONE (21:31)
[2019-04-04] MEDS ORDERED: FENTAnyl 50 MCG/ML VIAL ONE (21:31)
[2019-04-04] MEDS ORDERED: MIDAZOLAM 1 MG/ML 2 ML INJ ONE (21:31)
[2019-04-04] MEDS ORDERED: PROPOFOL 20 ML ONE ×2 (21:31→22:40)
[2019-04-04] MEDS ORDERED: LIDOCAINE 2% (SDV) 5 ML INJ ONE (21:31)
[2019-04-04] MEDS ORDERED: ROPIVACAINE 0.5 % 30 ML VIAL ONE (21:32)
[2019-04-04] MEDS ORDERED: HYDROmorphONE 2 MG/ML SYG ONE (21:34)
[2019-04-04] MEDS ORDERED: PHENYLephrine (100 MCG/ML) 10ML SYG ONE (22:12)
[2019-04-04] MEDS ORDERED: DEXAMETHASONE 4 MG/ML 5 ML INJ ONE (22:41)
[2019-04-04] MEDS ORDERED: ONDANSETRON 4 MG INJ ONE (22:41)
[2019-04-04] MEDS ORDERED: CEFAZOLIN 1 GM INJ ONE (22:43)
[2019-04-05] VITALS (17 sets, daily range): BP systolic 98–122; BP diastolic 56–67; PULSE 72–98; RESP 16–23
[2019-04-05] MEDS ORDERED: GLYCOPYRROLATE 0.4 MG INJ ONE (00:15)
[2019-04-05] MEDS ORDERED: NEOSTIGMINE 3 MG/3 ML SYRINGE ONE (00:15)
[2019-04-05] MEDS: SOD CHLORIDE 0.9% 1,000 ML IV SCH (00:30)
--- NOTE | 2019-04-05 00:30 | OPR ---
Date/Time of Note Date/Time of Note DATE: 04/05/19 TIME: 00:26 Operative Report Free Text/Dictation Operative report Procedure Date: Apr 05, 2019 Preoperative Diagnosis Acute cholecystitis, cholelithiasis Postoperative Diagnosis Severe acute cholecystitis and cholelithiasis Operation/Procedure Performed Laparoscopic cholecystectomy Surgeon Kirsten Bolanos MD see signature line Federal Law Clerk None Anesthesia Type: general Anesthesiologist: ASHLEY JOHNSON MD Estimated Blood Loss: 50 - 100 ml's Transfusion none Specimen Gallbladder and content Grafts/Implants none Tubes/Drains None Complications none Pt Condition Post Procedure: stable Disposition: PACU Indications Patient presented to the emergency room secondary to tach severe epigastric pain right upper quadrant pain in the past 3 days patient marked tenderness in the epigastrium right upper quadrant ultrasound revealed gallstones and thickened gallbladder wall when she was advised for admission and urgent laparoscopic cholecystectomy. Patient had undergone sleeve gastrectomy several years ago and had abdominoplasty since that time. Risk benefits alternatives were discussed in detail including possible conversion open procedure possibility of post cholecystectomy syndrome and expectations for postoperative care patient agreed to proceed consent was signed and she was brought urgently to the operating room Procedure Description Patient brought to the operating placed in supine position general she is administered with intubation patient was prepped draped in sterile fashion orogastric tube was inserted by anesthesia. Timeout was completed. TAP block was done by anesthesia . A Veress needle was inserted at [place] , insufflation delivered to maintain pneumo at 15 mm Hg . A supraumbilical stab incision was made a a 5 mm trocar inserted . it did not enter into the abdomen so an additional trocar was inserted i the left mid abdomen n easily . The Veress needle was removed and it was noted the initial trocar was in the falciform. The Veress was removed and additional trocars were then inserted , a 11 mm in the epigastrium , 2 5 mm trocars in the right abdomen . The gallbladder was inflamed and quite distended and covered with omentum and a phrygian cap . It was then decompressed by making a cholecystostomy with a cautery and aspirating the white bile . The gallbladder was then [id number] over the right lobe of the liver . The neck was carefully dissected at the level of the node and care was taken to bluntly separate the right hepatic artery off the gallbladder and skeletonize the cystic artery . it was then double clipped proximally , single clipped distal and divided . similar fashion the duct was dissected and skeletonized . The gallbladder was then taken bluntly and with cautery off the liver bed . There was a significant amount of inflammation , edema noted . The gallbladder was taken off completely . There was moderate oozing due to the capsule being avulsed , and pressure with a gauze and FloSeal were used affectively to control the gallbladder was then placed in an applied medical specimen bag and delivered up into the 11 mm site . the fascia had to be extended to deliver the specimen n all trocars were removed after confirming that hemostasis was controlled The incisions were closed with 4-0 Monocryl for skin . the 11mm site was closed with 0 Ethibond , 3-0 Vicryl and 4-0 Monocryl then skin glue was applied the patient was extubate din the operating room and brought to recovery in stable condition KIRSTEN BOLANOS MD Apr 05, 2019 00:30
--- NOTE | 2019-04-05 00:33 | PAC ---
Date/Time of Note Date/Time of Note DATE: 04/05/19 TIME: 00:32 Post-Anesthesia Notes Post-Anesthesia Note Last documented vital signs Vital Signs Date Temp Pulse Resp B/P (MAP) Pulse Ox O2 O2 Flow FiO2 Time Delivery Rate 04/04/19 98.2 88 20 103/56 100 21:07 (72) 04/04/19 Room Air 12:07 Activity: WNL Respiratory function: WNL Cardiovascular function: WNL Mental status: Baseline Pain reasonably controlled: Yes Hydration appropriate: Yes Nausea/Vomiting absent: Yes Comments BP: 114/67 HR: 99 RR: 15 T: 98.6 SaO2: 100% ASHLEY JOHNSON MD Apr 05, 2019 00:33
[2019-04-05] MEDS ORDERED: KETOROLAC 30 MG INJ IV ONE (01:00)
[2019-04-05] MEDS ORDERED: ACETAMINOPHEN 325 MG TAB PO PRN (01:00)
[2019-04-05] MEDS ORDERED: ONDANSETRON 4 MG INJ IV PRN (01:00)
[2019-04-05] MEDS ORDERED: IBUPROFEN 600 MG TAB PO PRN (01:00)
[2019-04-05] MEDS: D5W-0.45 NACL + KCL 20 MEQ 1,000 ML IV SCH ×3 (01:51→20:37)
[2019-04-05] MEDS: PIPER-TAZO 3.375 GM IV (PMX) 100 ML IVPB SCH ×3 (05:39→18:56)
[2019-04-05] MEDS: morphine 2 MG INJ IV PRN ×3 (05:40→17:26)
[2019-04-05] MEDS: HYDROCODONE/APAP (5/325) TAB PO PRN ×3 (08:29→19:48)
[2019-04-05] MEDS: ENOXAPARIN 40 MG/0.4 ML SYG SC SCH (09:14)
[2019-04-05] MEDS: FAMOTIDINE 20 MG INJ IV SCH ×2 (09:20→20:48)
--- NOTE | 2019-04-05 14:00 | PN ---
Date/Time of Note Date/Time of Note DATE: 04/05/19 TIME: 13:56 Assessment/Plan VTE Prophylaxis Risk score (from [facility] [place]0 risk: 3 SCD applied (from [facility] [place]): No SCD contraindicated: other Pharmacological prophylaxis: heparin Lines/Catheters IV Catheter Type (from [place]): Saline Lock Urinary Cath still in place: No Assessment/Plan Hospital Course S: Patient had laproscopic cholecystomy earlier this morning. Tolerating diet but still complaining of some right-sided abdominal pain. O: VS- see below PHYSICAL EXAMINATION: GENERAL: lying in bed HEENT: PERRL, EOMI NECK: Supple, no thyromegaly. LUNGS: Clear to auscultation bilaterally. CARDIOVASCULAR: S1, S2 heard. No rubs or gallops. ABDOMEN: Less tenderness to palpation right upper quadrant area with some guardi ng otherwise normal bowel sounds. No rebound. MUSCULOSKELETAL: No lower extremity edema bilaterally. NEUROLOGIC: No focal deficits. Date/Time of Note Date/Time of Note DATE: 04/05/19 TIME: 00:26 Operative Report Free Text/Dictation Operative report Procedure Date: Apr 05, 2019 Preoperative Diagnosis Acute cholecystitis, cholelithiasis Postoperative Diagnosis Severe acute cholecystitis and cholelithiasis Operation/Procedure Performed Laparoscopic cholecystectomy ASSESSMENT AND PLAN: 33-year-old female coming in with signs of right upper quadrant abdominal pain and vomiting symptoms and subjective fevers with signs of acute cholecystitis. 1. Abdominal pain- likely secondary to acute cholecystitis. Again status post laparoscopic cholecystectomy postop day #1. - Continue IV fluids, pain control medications - follow up postoperative recommendations of the surgery consult team. - Continue IV fluids. 2. Gastrointestinal prophylaxis- H2 antonio. 3. Deep venous thrombosis prophylaxis- heparin subcutaneously. Result Diagram: 04/05/19 0514 04/05/19 0514 Results 24hrs Laboratory Tests Test 04/05/19 05:14 White Blood Count 8.8 # Red Blood Count 4.30 Hemoglobin 12.5 Hematocrit 38.8 Mean Corpuscular Volume 90.2 Mean Corpuscular Hemoglobin 29.1 Mean Corpuscular Hemoglobin Concent 32.2 Red Cell Distribution Width 12.7 Platelet Count 196 Mean Platelet Volume 9.2 Immature Granulocytes % 0.500 H Neutrophils % 90.3 H Lymphocytes % 6.6 L Monocytes % 2.5 Eosinophils % 0.0 Basophils % 0.1 Nucleated Red Blood Cells % 0.0 Immature Granulocytes # 0.040 H Neutrophils # 8.0 H Lymphocytes # 0.6 L Monocytes # 0.2 L Eosinophils # 0.0 Basophils # 0.0 Nucleated Red Blood Cells # 0.0 Sodium Level 140 Potassium Level 4.8 Chloride Level 106 Carbon Dioxide Level 27 Anion Gap 7 Blood Urea Nitrogen 6 L Creatinine 0.47 Est Glomerular Filtrat Rate mL/min > 60 Glucose Level 158 Hemoglobin A1c 4.8 Calcium Level 8.4 Triglycerides Level 52 Cholesterol Level 115 LDL Cholesterol, Calculated 73 HDL Cholesterol 32 L Cholesterol/HDL Ratio 3.5 Thyroid Stimulating Hormone (TSH) 0.653 Exam/Review of Systems Exam Vitals Vital Signs Date Temp Pulse Resp B/P (MAP) Pulse Ox O2 O2 Flow FiO2 Time Delivery Rate 04/05/19 98.6 78 20 105/58 96 08:00 (74) 04/05/19 Room Air 03:30 Intake and Output 04/04/19 04/04/19 04/05/19 1515:00 23:00 07:00 IntakeIntake Total 1000 ml 550 ml 820 ml BalanceBalance 1000 ml 550 ml 820 ml Results Results 24hrs Laboratory Tests Test 04/05/19 05:14 White Blood Count 8.8 # Red Blood Count 4.30 Hemoglobin 12.5 Hematocrit 38.8 Mean Corpuscular Volume 90.2 Mean Corpuscular Hemoglobin 29.1 Mean Corpuscular Hemoglobin Concent 32.2 Red Cell Distribution Width 12.7 Platelet Count 196 Mean Platelet Volume 9.2 Immature Granulocytes % 0.500 H Neutrophils % 90.3 H Lymphocytes % 6.6 L Monocytes % 2.5 Eosinophils % 0.0 Basophils % 0.1 Nucleated Red Blood Cells % 0.0 Immature Granulocytes # 0.040 H Neutrophils # 8.0 H Lymphocytes # 0.6 L Monocytes # 0.2 L Eosinophils # 0.0 Basophils # 0.0 Nucleated Red Blood Cells # 0.0 Sodium Level 140 Potassium Level 4.8 Chloride Level 106 Carbon Dioxide Level 27 Anion Gap 7 Blood Urea Nitrogen 6 L Creatinine 0.47 Est Glomerular Filtrat Rate mL/min > 60 Glucose Level 158 Hemoglobin A1c 4.8 Calcium Level 8.4 Triglycerides Level 52 Cholesterol Level 115 LDL Cholesterol, Calculated 73 HDL Cholesterol 32 L Cholesterol/HDL Ratio 3.5 Thyroid Stimulating Hormone (TSH) 0.653 Medications Medication Current Medications IV Flush (NS 3 ml) 3 ml PER PROTOCOL IV ; Start 7/18/19 at 14:30 Acetaminophen/ Hydrocodone Bitart ([place] (5/325)) 1 tab Q6H PRN PO .MOD PAIN 4- 6 Last administered on 04/05/19 08:29; Admin Dose 1 TAB; Start 04/04/19 at 14:30 Morphine Sulfate (morphine) 2 mg Q4H PRN IV .SEVERE PAIN 7-10 Last administered on 04/05/19 10:07; Admin Dose 2 MG; Start 04/04/19 at 14:30 Docusate Sodium (Colace) 100 mg Q12H PRN PO .CONSTIPATION; Start 04/04/19 at 14:30 Magnesium Hydroxide (Milk Of Mag) 30 ml DAILY PRN PO .CONSTIPATION; Start 04/04/19 at 14:30 Lorazepam (Ativan) 0.5 mg Q6H PRN IV ANXIETY Last administered on 04/04/19at 15:39; Admin Dose 0.5 MG; Start 04/04/19 at 14:30 Albuterol/ Ipratropium (Duoneb) 3 ml Q4H RESP THERAPY PRN HHN SHORTNESS OF BREATH; Start 04/04/19 at 14:30 Nitroglycerin (Nitroglycerin (Sl Tab) 0.4 Mg) 1 tab Q5M PRN SL ANGINA; Start 04/04/19 at 14:30 Piperacillin Sod/ Tazobactam Sod 100 ml @ 200 mls/hr Q6 IVPB Last administered on 04/05/19at 12:29; Admin Dose 200 MLS/HR; Start 04/05/19 at 06:00 Ondansetron HCl (Zofran Inj) 4 mg Q6H PRN IV NAUSEA AND/OR VOMITING; Start 04/05/19 at 01:00 Acetaminophen (Tylenol Tab) 650 mg Q6H PRN PO MILD PAIN(1-3)OR ELEVATED TEMP; Start 04/05/19 at 01:00 Ibuprofen (Motrin) 600 mg Q6H PRN PO PAIN LEVEL 1-5; Start 04/05/19 at 01:00 Famotidine (Pepcid Iv) 20 mg Q12 IV Last administered on 04/05/19at 09:20; Admin Dose 20 MG; Start 04/05/19 at 09:00 Potassium Chloride/Dextrose/ Sod Cl 1,000 ml @ 100 mls/hr Q10H IV Last administered on 04/05/19at 12:27; Admin Dose 100 MLS/HR; Start 04/05/19 at 00:46 Enoxaparin Sodium (Lovenox) 40 mg DAILY@07 SC Last administered on 04/05/19at 09:14; Admin Dose 40 MG; Start 04/05/19 at 07:00 ETIENNE CRUZ Apr 05, 2019 14:00
[2019-04-05] MEDS: MAGNESIUM HYDROXIDE 30ML CUP PO PRN (20:51)
[2019-04-05] MEDS: DIPHENHYDRAMINE 25 MG CAP PO PRN (22:08)
[2019-04-05] MEDS ORDERED: KETOROLAC 30 MG INJ ONE (22:16)
[2019-04-06] MEDS: PIPER-TAZO 3.375 GM IV (PMX) 100 ML IVPB SCH ×4 (01:04→17:32)
[2019-04-06 02:00] VITALS: BP 99/54; PULSE 64; RESP 16
[2019-04-06] MEDS: D5W-0.45 NACL + KCL 20 MEQ 1,000 ML IV SCH ×2 (03:48→15:42)
[2019-04-06] MEDS: ENOXAPARIN 40 MG/0.4 ML SYG SC SCH (06:14)
[2019-04-06] MEDS: morphine 2 MG INJ IV PRN (06:16)
[2019-04-06 08:21] VITALS: BP 100/56; PULSE 66; RESP 16
[2019-04-06] MEDS: FAMOTIDINE 20 MG INJ IV SCH (09:09)
[2019-04-06] MEDS: MAGNESIUM HYDROXIDE 30ML CUP PO PRN (09:09)
[2019-04-06] MEDS: HYDROCODONE/APAP (5/325) TAB PO PRN ×2 (09:16→17:33)
[2019-04-06 14:36] VITALS: BP 99/53; PULSE 79; RESP 16
[2019-04-06] MEDS: DIPHENHYDRAMINE 25 MG CAP PO PRN (17:32)
--- NOTE | 2019-04-06 17:59 | DS ---
DATE OF ADMISSION: 04/04/2019 DATE OF DISCHARGE: 04/06/2019 HOSPITAL COURSE: This is a 33-year-old female, originally admitted on 04/04/2019 and being discharge d home on 04/06/2019. The patient came with abdominal pain symptoms. She was found with acute lorna cystitis. She had been complaining of abdominal pain for 2 days prior to admission. She was admitte d to medical/surgical unit and imaging studies confirmed gallstones. She was given pain control medi cations, fluids and antiemetic medications. Her labs were checked and she was afebrile and white blo od cell count was stable. She was seen by surgery team and underwent laparoscopic cholecystectomy on 04/05/2019. She tolerated the procedure well. Afterwards, she was able to ambulate, tolerate a p.o . diet. She was able to pass gas as well. After getting clearance from the surgery team she will be discharged home today in an improved condition. DISCHARGE MEDICATIONS: She will continue taking her home medicines includin. H2 antonio. 2. Zofran at current dose. 3. [place] 5/325 one tab p.o. q.6 p.r.n. FOLLOWUP: She will need a followup with the surgery team in the clinic in the next 1 to 2 weeks. FINAL DIAGNOSES: Abdominal pain secondary to acute cholecystitis. Time spent on discharging this patient and discharge summary, 35 minutes. Dictated By: ETIENNE MOLINA/SHER Conf#: [id number] DID#: [id number]
[2019-04-06] MEDS ORDERED: FAMOTIDINE 20 MG TAB PO SCH (21:00)
== END 2019-04-06 19:00 | disposition home or self-care (01) | DRG 419 ==
LOC: FTE 10:14 → PP2 10:44
PROVIDERS: ADMIT Hospitalist; ATTEND Hospitalist
PROC: 0FT44ZZ Resection of Gallbladder, Percutaneous Endoscopic Approach (ICD-10-PCS; principal; 2019-04-05)
DX: K80.00 Calculus of gallbladder with acute cholecystitis without obstruction (principal); E66.9 Obesity, unspecified; Z68.31 Body mass index [BMI] 31.0-31.9, adult
CPT/HCPCS: 36415; 71045; 80048; 80053; 80061; 81003; 81025; 83036; 83690; 84439; 84443; 84484; 85025; 85610; 85730; 88304; 93005; J0690; J1100; J1170; J1200; J1644; J1650; J1885; J2060; J2250; J2270; J2370; J2405; J2543; J2710; J2795; J3010; J3480; J7030